=== PATIENT | female | born 1995 | race Caucasian/White ===

== ENCOUNTER 2023-03-13 23:17 | Emergency (ER) | payer OTHER ==
[2023-03-14 01:12] LABS: HEPATITIS B SURFACE ANTIGEN NEGATIVE
[2023-03-14 01:40] LABS: HEPATITIS B CORE AB IGM NEGATIVE; HEPATITIS C VIR.AB 0.08 INDEXVAL (0.00-0.80)
[2023-03-14 01:42] LABS: HEPATITIS A AB IGM NEGATIVE (NEGATIVE)
[2023-03-15 08:08] LABS: HIV SCREEN 4G Non Reactive (Non Reactive)
== END 2023-03-14 00:51 | disposition home or self-care (01) ==
LOC: EDBD 23:17 → ER 03-14 00:16
DX: T75.89XA Other specified effects of external causes, initial encounter (principal); F19.90 Other psychoactive substance use, unspecified, uncomplicated; X58.XXXA Exposure to other specified factors, initial encounter; Y93.89 Activity, other specified; Y92.89 Other specified places as the place of occurrence of the external cause; Y99.8 Other external cause status
CPT/HCPCS: 36415; 86705; 86709; 86803; 87340; 87389; 99283